=== PATIENT | male | born 1970 | race Caucasian/White ===

== ENCOUNTER 2023-11-20 13:46 | Outpatient (RCR) | payer BC, SELFPAY ==
[2023-11-20 13:55] VITALS: BP 122/70
[2023-11-20] MEDS: RABAVERT RABIES VACC W-DILUENT 2.5 UNIT IM (14:05)
== END 2023-11-22 23:59 | disposition home or self-care (01) ==
LOC: OID 13:46
PROVIDERS: ATTENDING PHYSICIAN Nurse Practitioner Family; FAMILY PHYSICIAN Family Medicine
DX: Z23 Encounter for immunization (principal); Z20.3 Contact with and (suspected) exposure to rabies
CPT/HCPCS: 90471; 90675

== ENCOUNTER 2023-12-02 11:32 | Outpatient (RCR) | payer BC, SELFPAY ==
[2023-12-02 11:40] VITALS: BP 116/73
[2023-12-02] MEDS: RABAVERT RABIES VACC W-DILUENT 2.5 UNIT IM (11:48)
== END 2023-12-03 13:42 | disposition home or self-care (01) ==
LOC: OID 11:32
PROVIDERS: ATTENDING PHYSICIAN Nurse Practitioner Family; FAMILY PHYSICIAN Family Medicine
DX: Z20.3 Contact with and (suspected) exposure to rabies (principal); Z23 Encounter for immunization
CPT/HCPCS: 90471; 90675